=== PATIENT | female | born 1960 | race Asian ===

== ENCOUNTER 2019-07-22 21:13 | Emergency (ER) | payer OTHER ==
[~2019-07-22] VITALS: Ht 160 cm; Wt 72.6 kg
[2019-07-22] MEDS ORDERED: ZESTRIL40 MG PO (21:46)
[2019-07-22] MEDS ORDERED: NORVASC 2.5 MG2.5 M1 PO (21:47)
[2019-07-22] MEDS ORDERED: LIPITOR 20 MG T20 M1 PO (21:47)
[2019-07-22] MEDS ORDERED: HYDROCHLOROTHIA25 M2 PO (21:47)
[2019-07-22] MEDS ORDERED: NAPROSYN500 MG PO (22:26)
[2019-07-22 22:40] VITALS: BP 158/84
== END 2019-07-22 22:58 | disposition home or self-care (01) ==
LOC: ER 21:13
DX: S84.91XA Injury of unspecified nerve at lower leg level, right leg, initial encounter (principal); E78.5 Hyperlipidemia, unspecified; F17.210 Nicotine dependence, cigarettes, uncomplicated; X58.XXXA Exposure to other specified factors, initial encounter; Y92.89 Other specified places as the place of occurrence of the external cause; Y93.89 Activity, other specified; Y99.8 Other external cause status

== ENCOUNTER 2020-07-13 19:57 | Emergency (ER) | payer OTHER ==
[~2020-07-13] VITALS: Ht 162.6 cm; Wt 67.1 kg
[~2020-07-13 19:57] MED LIST: HYDROCHLOROTHIA25 M2 PO; LIPITOR 20 MG T20 M1 PO; NAPROSYN500 MG PO; NORVASC 2.5 MG2.5 M1 PO; ZESTRIL40 MG PO
[2020-07-13 20:11] VITALS: BP 145/90
[2020-07-13] MEDS ORDERED: VITAMIN D-40010 MCG PO (20:16)
[2020-07-13] MEDS ORDERED: ZINC SULFATE220 MG PO (20:19)
[2020-07-13] MEDS ORDERED: PREDNISONE 20 M20 MG PO (21:11)
== END 2020-07-13 21:28 | disposition home or self-care (01) ==
LOC: ER 19:57
DX: M54.41 Lumbago with sciatica, right side (principal); I10 Essential (primary) hypertension; E78.5 Hyperlipidemia, unspecified; F17.210 Nicotine dependence, cigarettes, uncomplicated; Z98.890 Other specified postprocedural states; Z79.899 Other long term (current) drug therapy

== ENCOUNTER 2020-09-06 00:30 | Emergency (ER) | payer OTHER ==
[~2020-09-06] VITALS: Ht 160 cm; Wt 68.0 kg
[~2020-09-06 00:30] MED LIST changes: +PREDNISONE 20 M20 MG PO; +VITAMIN D-40010 MCG PO; +ZINC SULFATE220 MG PO
[2020-09-06 01:51] LABS: BASOPHILS 0.6 % (0.0-2.0); EOSINOPHILS 1.3 % (0.0-3.0); HEMATOCRIT 44.5 % (37.0-47.0); LYMPHOCYTES 23.8 % (24.0-44.0); MCH 31.9 pg (26.0-34.0); MCHC 33.8 g/dL (28.0-37.0); MCV 94.4 fL (80.0-100.0); MONOCYTES 5.6 % (1.0-8.0); PLATELET COUNT 264 thou/uL (150-400); POLYS 68.7 % (36.0-66.0); RBC 4.71 mil/uL (4.20-5.00); RDW 12.5 % (10.5-14.5); WBC 10.2 thou/uL (4.0-11.0)
[2020-09-06 01:55] LABS: CREATININE 0.8 mg/dL (0.6-1.0); MAGNESIUM 2.1 mg/dL (1.8-2.4); POTASSIUM 3.7 mmol/L (3.5-5.1)
[2020-09-06 02:48] VITALS: BP 151/73
--- NOTE | 2020-09-06 07:15 | EKG ---
[place] [address] [facility] [place] [address] ELECTROCARDIOGRAM REPORT Name: KOJO CHAUDHARY Room #: DEP Bebe#: [id number] Admission: 09/06/20 Attend Phys: Discharge: 09/06/20 Date of : 62 Report #: [id number] 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
== END 2020-09-06 02:47 | disposition home or self-care (01) ==
LOC: ER 00:30
PROVIDERS: Emergency Medicine
DX: R00.2 Palpitations (principal); I10 Essential (primary) hypertension; E78.5 Hyperlipidemia, unspecified; F17.210 Nicotine dependence, cigarettes, uncomplicated; Z79.899 Other long term (current) drug therapy

== ENCOUNTER 2021-09-01 21:36 | Emergency (ER) | payer OTHER ==
[~2021-09-01] VITALS: Ht 160 cm; Wt 69.0 kg
[2021-09-01] MEDS ORDERED: FLEXERIL PO (23:11)
[2021-09-01 23:23] VITALS: BP 190/85
--- NOTE | 2021-09-02 14:22 | EKG ---
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1960 Requested By: Philippe Shipman Order Number: [id number] MD: Papa Wood Measurements Intervals [place] Rate: 90 P: -13 [place]: 119 QRS: 60 QRSD: 97 T: 34 QT: 372 QTc: 455 Interpretive Statements Sinus rhythm RSR' in V1 or V2, right VCD or RVH Compared to ECG 09/06/2020 00:45:30 Right ventricular hypertrophy now present RSR' in V1 or V2 now present Sinus tachycardia no longer present Electronically Signed On 09-02-2021 14:22:20 [employer]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
== END 2021-09-01 23:25 | disposition home or self-care (01) ==
LOC: ER 21:36
DX: M25.512 Pain in left shoulder (principal); I10 Essential (primary) hypertension; E78.5 Hyperlipidemia, unspecified; F17.210 Nicotine dependence, cigarettes, uncomplicated; Z79.899 Other long term (current) drug therapy